=== PATIENT | female | born 1970 | race Caucasian/White ===

== ENCOUNTER 2016-12-10 06:03 | Emergency (ER) | payer SELFPAY ==
--- NOTE | 2016-12-10 07:00 | ED ORDER SUMMARY ---
..... Patient: CORAL WATTERS OrderSheet [facility] VisitID: [id number] [place] [address] 46y, F Registration Date/Time: 12/10/2016 ORDER SHEET Weight: 72.5 kg (stated) Allergies: NKDA GENERAL ORDERS: Rapid Influenza Screen (Nasal Pharyngeal) (swab) Urgent (06:27 12/10/2016 Francisco ZAMORA) (Ack 6:30 IJurca ER Tech1) (6:43 HKone R.N.) Chest 2V Urgent (06:35 12/10/2016 Francisco ZAMORA) (Ack 6:39 IJurca ER Tech1) (6:44 HKone R.N.) RT Evaluation Stat (06:36 12/10/2016 Francisco ZAMORA) (Ack 6:39 IJurca ER Tech1) (6:43 HSoule) MEDICATION ORDERS: Prednisone PO 60 mg (NOW) (06:36 12/10/2016 Francisco ZAMORA) (6:43 HKone R.N.) DuoNeb Neb Tx 1 unit dose (NOW) (06:36 12/10/2016 Francisco ZAMORA) (6:43 HKone R.N.) IV FLUIDS: ORDER SHEET NOTES: [Electronically signed by Selena Zacarias R.N. (07:11 12/10/2016)] [Electronically signed by Ann Carrillo MD (21:05 12/15/2016)] [Electronically locked/signed by Selena Zacarias R.N. (07:11 12/10/2016)]
--- NOTE | 2016-12-10 07:00 | ED CLINICAL REPORT ---
Clinical Report - Physicians/Mid Levels [facility] [address] [place] [address] 12/10/2016 6:04 Patient: CORAL WATTERS Time Seen: 06:15. Arrived- By private vehicle. Historian- patient. HISTORY OF PRESENT ILLNESS Chief Complaint: COUGH, SORE THROAT and "FLU". RUNNY NOSE. This started about 1 week ago and is still present and now worse. The illness is described as moderate. The patient has had a cough, a sore throat, nasal congestion, sinus pressure and muscle aches. She has had a nasal discharge. No sputum production, difficulty breathing, chest discomfort or pain or fever. No chills, hoarseness, sinus drainage or ear pain. Additional history - No known contact with a sick individual. Similar symptoms previously: Recent medical care: Not recently seen/assessed. REVIEW OF SYSTEMS No headache, eye discomfort, nausea, vomiting or diarrhea. No abdominal pain, hay fever, pedal edema, calf pain or difficulty with urination. No skin rash, enlarged lymph nodes or joint pain. Denies current . All systems otherwise negative, except as recorded above. PAST HISTORY Problems: no known problems. Additional Surgeries: Hysterectomy. Right hand surgery. Medications: None. Allergies: NKDA. SOCIAL HISTORY Smoker- current status unknown. No alcohol use or drug use. ADDITIONAL NOTES The nursing notes have been reviewed. PHYSICAL EXAM Vital Signs: 12/10/2016 06:17 BP: 151/73. HR: 97. RR: 20. O2 saturation: 96%. Temp: 98.8 F. Pain level now: 4/10. Have been reviewed. Appearance: Alert. No acute distress. Eyes: Pupils equal, round and reactive to light. Eyes normal inspection. ENT: Pharynx normal. Uvula midline. (Mild rhinorrhea.). Neck: Normal inspection. Neck supple. CVS: Normal heart rate and rhythm. Heart sounds normal. Pulses normal. Respiratory: No respiratory distress. Mildly prolonged expirations. Expiratory mild bilateral wheezes diffusely. No decreased breath sounds. Abdomen: Soft and nontender. Back: Normal inspection. No CVA tenderness. Skin: Skin warm and dry. Normal skin color. No rash. Normal skin turgor. Extremities: Extremities exhibit normal ROM. No lower extremity edema. Neuro: Oriented X 3. No motor deficit. No sensory deficit. LABS, X-RAYS, AND EKG Chest X-ray: No acute disease. Normal lung markings present. Normal heart size. Mediastinum normal. Great vessels normal. Soft tissues normal. No infiltrate. No fracture. No bony lesion present. Views: PA and lateral. Technique: good. The X-rays were independently viewed by me and interpreted contemporaneously by me. Prior films were not available for comparison. Laboratory Tests: Rapid Influenza Screen: (ISAAC: 12/10/2016 06:33) ( MsgRcvd 12/10/2016 06:48) Final results SPECIMEN DESCRIPTION: SWAB Test Result Flag Units (Reference) RAPID INFLUENZA SCREEN DATE: 12/10/16 INFLUENZA A: NEGATIVE SCREEN FOR INFLUENZA A INFLUENZA B: NEGATIVE SCREEN FOR INFLUENZA B . Pulse Oximetry: 12/10/2016 06:17 O2 saturation: 96%. (FIO2 - room air). Interpretation: normal. PROGRESS AND PROCEDURES Course of Care: PT was worked up for her sx with an influenza test and CXR, which were negative. She was treated with a duoneb and prednisone, after which her respiratory status was improved. Patient counseled in person regarding the patient's stable condition, test results, diagnosis and need for follow-up. Concerns were addressed. Old medical records reviewed. Disposition: Discharged. Condition: stable and improved. CLINICAL IMPRESSION Mild persistent asthma with an acute exacerbation. Acute viral (presumed) rhinitis. No airway obstruction. INSTRUCTIONS Do not work today. Drink plenty of fluids. Warnings: GENERAL WARNINGS: Return or contact your physician immediately if your condition worsens or changes unexpectedly, if not improving as expected, or if other problems arise. Prescription Medications: Prednisone 20 mg: take 3 orally every day for 5 days. Dispense fifteen (15). No refills. Zithromax Z-Jewel: Take according to package instructions 2 orally initially, followed by 1 orally for the next 4 days. Total course 5 days. No refills. Substitution is permissible. Advair Diskus 100/50 mcg: one inhalation every 12 hours as needed for wheezing, difficulty breathing or shortness of breath until symptoms improve. Dispense one (1) unit with 60 blisters. No refill. Substitution is permissible. Follow-up: Follow up with your doctor as needed. Call for the next available appointment. Understanding of the discharge instructions verbalized by patient. (Electronically signed by Ann Carrillo MD 12/15/2016 21:05)
--- NOTE | 2016-12-10 07:00 | ED ORDER SUMMARY ---
..... Patient: CORAL WATTERS OrderSheet [facility] VisitID: [id number] [place] [address] 46y, F Registration Date/Time: 12/10/2016 ORDER SHEET Weight: 72.5 kg (stated) Allergies: NKDA GENERAL ORDERS: Rapid Influenza Screen (Nasal Pharyngeal) (swab) Urgent (06:27 12/10/2016 Francisco ZAMORA) (Ack 6:30 IJurca ER Tech1) (6:43 HKone R.N.) Chest 2V Urgent (06:35 12/10/2016 Francisco ZAMORA) (Ack 6:39 IJurca ER Tech1) (6:44 HKone R.N.) RT Evaluation Stat (06:36 12/10/2016 Francisco ZAMORA) (Ack 6:39 IJurca ER Tech1) (6:43 HSoule) MEDICATION ORDERS: Prednisone PO 60 mg (NOW) (06:36 12/10/2016 Francisco ZAMORA) (6:43 HKone R.N.) DuoNeb Neb Tx 1 unit dose (NOW) (06:36 12/10/2016 Francisco ZAMORA) (6:43 HKone R.N.) IV FLUIDS: ORDER SHEET NOTES: [Electronically signed by Selena Zacarias R.N. (07:11 12/10/2016)] [Electronically signed by Ann Carrillo MD (21:05 12/15/2016)] [Electronically locked/signed by Selena Zacarias R.N. (07:11 12/10/2016)]
--- NOTE | 2016-12-10 07:00 | ED NURSING NOTES ---
Clinical Report - Nurses [facility] [address] [place] [address] 12/10/2016 6:04 Patient: CORAL WATTERS TRIAGE Triage time 0617. Acuity: LEVEL 4. Chief Complaint: COUGH, RUNNY NOSE, SORE THROAT and "FLU". KYLEE COMA SCORE: Kylee Coma Scale: 15- eyes open spontaneously (4); best verbal response- oriented x 4 (5); best motor response- obeys commands (6). --06:23 Selena Zacarias R.N. 06:17 12/10/16. BP: 151/73. HR: 97. RR: 20 (regular). O2 saturation: 96% on room air. Temp: 98.8 F (oral). Pain level now: 02/15. --06:23 Selena Zacarias R.N. Weight: 72.5 kg stated. Height/Length: 66 inches Per Patient. BMI: 25.8. --06:17 Selena Zacarias R.N. Medications None. --06:22 Selena Zacarias R.N. Allergies NKDA. --06:22 Selena Zacarias R.N. Medication/allergy information source: the patient. --06:23 Selena Zacarias R.N. History Arrived by private vehicle. Historian: patient. Unaccompanied. Primary physician (Dr. Abiola Jarrell). ( pt c/o flu symptoms with head cold and sinuses x 1 week and worse the past 3 days with productive cough and sore throat last night.). Onset. (1 week). 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 (Mucinex, Theraflu, Nyquil). SOCIAL HX: Light tobacco smoker (cigarette)- less than 1/2 a pack per day. No alcohol use or drug use. ABUSE ASSESSMENT: No report of abuse. FALL RISK ASSESSMENT: Fall risk assessment completed. No fall risk identified. NUTRITIONAL RISK ASSESSMENT: The nutritional risk assessment revealed no deficiencies. FUNCTIONAL ASSESSMENT: Functional assessment: no impairments noted. LEARNING NEEDS ASSESSMENT: The learning needs assessment revealed no barriers. SKIN INTEGRITY ASSESSMENT: Skin integrity risk assessment completed. No skin integrity risk identified. --06:23 Selena Zacarias R.N. PROBLEMS: no known problems. ADDITIONAL SURGERIES: Hysterectomy. Right hand surgery. --06:23 Selena Zacarias R.N. Interventions ID band on patient. To treatment room. --06:23 Selena Zacarias R.N. PHYSICAL ASSESSMENT 06:25 pt c/o sore throat. Ambulatory to room. GENERAL / NEURO / PSYCH: Alert. Oriented X 4. Appears in no acute distress. HEENT: Runny nose. Mucous membranes are pink. RESPIRATORY: Respirations not labored. The patient can speak in full sentences. Cough productive of clear sputum. SKIN: Skin is warm and dry. Normal skin turgor. --06:53 Selena Zacarias R.N. NURSING PROGRESS NOTES Patient gowned. Head of bed elevated. Two patient identifiers checked. Call light placed in reach. Side rails up x 1. Bed placed in lowest position. Brakes of bed on. Patient ready for evaluation. --06:23 Selena Zacarias R.N. pt swabbed for flu, sent to lab. --06:38 Selena Zacarias R.N. 06:43 12/10/2016 Prednisone PO Tablets 60 mg given. Allergies verified and confirmed 5 rights. --06:43 Selena Zacarias R.N. 06:43 12/10/2016 Duoneb (Ipratropium-Albuterol) Neb TX 1 unit dose given. Given by the respiratory therapist. Allergies verified and confirmed 5 rights. --06:43 Selena Zacarias R.N. DISPOSITION / DISCHARGE Departure time: 706. Condition at departure: improved. No learning barriers present. Discharge instructions provided and reviewed with the patient. Reviewed medication(s). Prescription(s) given to the patient (Prednisone, Zpak, Advair). Patient verbalized understanding. Written instructions provided in Vincentian. The patient was discharged by the physician. She was discharged home and unaccompanied at time of discharge. She left the Emergency Department ambulatory and via private vehicle. Patient driving. Medication list reviewed and validated with the patient. --07:11 Selena Zacarias R.N. 07:07 12/10/16. BP: 122/67. HR: 100. RR: 20 (unlabored). O2 saturation: 95% on room air. Temp: deferred. Pain level now: 010. --07:11 Selena Zacarias R.N. Locked/Released at 12/10/2016 7:11 by Selena Zacarias R.N.
--- NOTE | 2016-12-10 07:00 | ED NURSING NOTES ---
Clinical Report - Nurses [facility] [address] [place] [address] 12/10/2016 6:04 Patient: CORAL WATTERS TRIAGE Triage time 0617. Acuity: LEVEL 4. Chief Complaint: COUGH, RUNNY NOSE, SORE THROAT and "FLU". KYLEE COMA SCORE: Kylee Coma Scale: 15- eyes open spontaneously (4); best verbal response- oriented x 4 (5); best motor response- obeys commands (6). --06:23 Selena Zacarias R.N. 06:17 12/10/16. BP: 151/73. HR: 97. RR: 20 (regular). O2 saturation: 96% on room air. Temp: 98.8 F (oral). Pain level now: 02/15. --06:23 Selena Zacarias R.N. Weight: 72.5 kg stated. Height/Length: 66 inches Per Patient. BMI: 25.8. --06:17 Selena Zacarias R.N. Medications None. --06:22 Selena Zacarias R.N. Allergies NKDA. --06:22 Selena Zacarias R.N. Medication/allergy information source: the patient. --06:23 Selena Zcaarias R.N. History Arrived by private vehicle. Historian: patient. Unaccompanied. Primary physician (Dr. Abiola Jarrell). ( pt c/o flu symptoms with head cold and sinuses x 1 week and worse the past 3 days with productive cough and sore throat last night.). Onset. (1 week). 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 (Mucinex, Theraflu, Nyquil). SOCIAL HX: Light tobacco smoker (cigarette)- less than 1/2 a pack per day. No alcohol use or drug use. ABUSE ASSESSMENT: No report of abuse. FALL RISK ASSESSMENT: Fall risk assessment completed. No fall risk identified. NUTRITIONAL RISK ASSESSMENT: The nutritional risk assessment revealed no deficiencies. FUNCTIONAL ASSESSMENT: Functional assessment: no impairments noted. LEARNING NEEDS ASSESSMENT: The learning needs assessment revealed no barriers. SKIN INTEGRITY ASSESSMENT: Skin integrity risk assessment completed. No skin integrity risk identified. --06:23 Selena Zacarias R.N. PROBLEMS: no known problems. ADDITIONAL SURGERIES: Hysterectomy. Right hand surgery. --06:23 Selena Zacarias R.N. Interventions ID band on patient. To treatment room. --06:23 Selena Zacarias R.N. PHYSICAL ASSESSMENT 06:25 pt c/o sore throat. Ambulatory to room. GENERAL / NEURO / PSYCH: Alert. Oriented X 4. Appears in no acute distress. HEENT: Runny nose. Mucous membranes are pink. RESPIRATORY: Respirations not labored. The patient can speak in full sentences. Cough productive of clear sputum. SKIN: Skin is warm and dry. Normal skin turgor. --06:53 Selena Zacarias R.N. NURSING PROGRESS NOTES Patient gowned. Head of bed elevated. Two patient identifiers checked. Call light placed in reach. Side rails up x 1. Bed placed in lowest position. Brakes of bed on. Patient ready for evaluation. --06:23 Selena Zacarias R.N. pt swabbed for flu, sent to lab. --06:38 Selena Zacarias R.N. 06:43 12/10/2016 Prednisone PO Tablets 60 mg given. Allergies verified and confirmed 5 rights. --06:43 Selena Zacarias R.N. 06:43 12/10/2016 Duoneb (Ipratropium-Albuterol) Neb TX 1 unit dose given. Given by the respiratory therapist. Allergies verified and confirmed 5 rights. --06:43 Selena Zacarias R.N. DISPOSITION / DISCHARGE Departure time: 706. Condition at departure: improved. No learning barriers present. Discharge instructions provided and reviewed with the patient. Reviewed medication(s). Prescription(s) given to the patient (Prednisone, Zpak, Advair). Patient verbalized understanding. Written instructions provided in Belgian. The patient was discharged by the physician. She was discharged home and unaccompanied at time of discharge. She left the Emergency Department ambulatory and via private vehicle. Patient driving. Medication list reviewed and validated with the patient. --07:11 Selena Zacarias R.N. 07:07 12/10/16. BP: 122/67. HR: 100. RR: 20 (unlabored). O2 saturation: 95% on room air. Temp: deferred. Pain level now: 010. --07:11 Selena Zacarias R.N. Locked/Released at 12/10/2016 7:11 by Selena Zacarias R.N.
--- NOTE | 2016-12-10 07:19 | DIAGNOSTIC IMAGING REPORT ---
PROCEDURE: XR CHEST 2 VIEW INDICATION: FEVER TECHNIQUE: PA and lateral views. COMPARISON: None. FINDINGS: Lungs are clear. Heart and mediastinum are normal. Thorax is normal. IMPRESSION: 1. Negative chest.
--- NOTE | 2016-12-15 21:05 | ED DISCHARGE INSTRUCTIONS ---
Patient: CORAL WATTERS General Instructions [facility] VisitID: [id number] [place] [address] 46y, F Registration Date/Time: 12/10/2016 Mild persistent asthma with an acute exacerbation. Acute viral (presumed) rhinitis. No airway obstruction. INSTRUCTIONS Do not work today. Drink plenty of fluids. Warnings: GENERAL WARNINGS: Return or contact your physician immediately if your condition worsens or changes unexpectedly, if not improving as expected, or if other problems arise. Prescription Medications: Prednisone 20 mg: take 3 orally every day for 5 days. Dispense fifteen (15). No refills. Zithromax Z-Jewel: Take according to package instructions 2 orally initially, followed by 1 orally for the next 4 days. Total course 5 days. No refills. Substitution is permissible. Advair Diskus 100/50 mcg: one inhalation every 12 hours as needed for wheezing, difficulty breathing or shortness of breath until symptoms improve. Dispense one (1) unit with 60 blisters. No refill. Substitution is permissible. Follow-up: Follow up with your doctor as needed. Call for the next available appointment. Understanding of the discharge instructions verbalized by patient. ADDITIONAL INFORMATION Viral Respiratory Illness [Adult] You have an Upper Respiratory Illness (URI) caused by a virus. This illness is contagious during the first few days. It is spread through the air by coughing and sneezing or by direct contact (touching the sick person and then touching your own eyes, nose or mouth). Most viral illnesses go away within 7-10 days with rest and simple home remedies. Sometimes, the illness may last for several weeks. Antibiotics will not kill a virus and are generally not prescribed for this condition. Home Care: 1) If symptoms are severe, rest at home for the first 2-3 days. When you resume activity, don't let yourself get too tired. 2) Avoid being exposed to cigarette smoke (yours or others). 3) Tylenol (acetaminophen) or ibuprofen (Advil, Motrin) will help fever, muscle aching and headache. (Persons under 18 with fever should not take aspirin since this may cause liver damage.) 4) Your appetite may be poor, so a light diet is fine. Avoid dehydration by drinking 6-8 glasses of fluids per day (water, soft drinks, juices, tea, soup). Extra fluids will help loosen secretions in the nose and lungs. 5) Hcdj-pwi-istfwwj cold medicines will not shorten the length of time youre sick, but they may be helpful for the following symptoms: cough (Robitussin DM); sore throat (Chloraseptic lozenges or spray); nasal and sinus congestion (Actifed, Sudafed, Chlortrimeton). Follow Up with your doctor or as advised if you dont improve over the next week. Get Prompt Medical Attention if any of the following occur: -- Cough with lots of colored sputum (mucus) or blood in your sputum -- Chest pain, shortness of breath, wheezing or have trouble breathing -- Severe headache; face, neck or ear pain -- Fever over 100.4 F (38.0 C) for more than three days -- You cant swallow due to throat pain Asthma [Adult] Asthma is a disease where the small air passages within the lung go into spasm and restrict the flow of air. Inflammation and swelling of the airways cause further restriction. During an acute asthma attack, these factors cause difficulty breathing, wheezing, cough and chest tightness. An asthma attack can be triggered by many things. Common triggers include the common cold, bronchitis, pneumonia, irritants such as smoke or pullutants in the air, emotional upset and heavy exercise. Inmany adults with asthma, allergies todust, mold, pollen and animal dander can cause an asthma attack. Skipping doses of daily asthma medicine can also bring on an asthma attack. Asthma can be controlled with proper medicines and decreased exposure to known allergens. Home Care: Take prescribed medicine exactly at the times advised. If you have a hand-held inhaler or aerosol breathing medicine, do not use it more than once every four hours, unless told to do so. (If you need this medicine more than every four hours, you may need to return to the Emergency Room.) If prescribed an antibiotic or prednisone, take all of the medicine even if you are feeling better after a few days. Do not smoke. Avoid being exposed to the smoke of others. Some persons with asthma have worsening of their symptoms when they take aspirin and non-steroidal medicines like ibuprofen (Motrin, Advil) and naproxen (Aleve, Naprosyn). Talk to your doctor if you think this may apply to you. Acetaminophen (Tylenol)should be safe to use. Follow Up with your doctor, or as advised by our staff. Always bring all of your current medicines with you for your doctor to see. If you do not already have one, talk to your doctor about developing a personalized "Asthma Action Plan." [NOTE: A pneumococcal vaccine and yearly flu shot (every fall) are recommended. Ask your doctor about this.] Get Prompt Medical Attention if any of the following occur: Increased wheezing or shortness of breath Need to use your inhalers more often than usual without relief Fever of 100.4F (38C) or higher, or as directed by your healthcare provider Coughing up lots of dark-colored or bloody sputum (mucus) Chest pain with each breath You do not start to improve within 24 hours Call 911 If Any Of The Following Occur : Trouble walking or talking because of shortness of breath If you use a peak flow meter andyou are still in the red zone (less than 50 percent) 15 minutes after using inhaler medication Lips or fingernails turning adams or blue You have been given the following additional information: Uri, Viral, No Abx (Adult) Asthma, Acute (Adult) Do not work today. (Electronically signed by Ann Carrillo MD 12/15/2016 21:05)
--- NOTE | 2016-12-15 21:05 | ED MED RECONCILIATION SUMMARY ---
Patient: CORAL WATTERS Medication Reconciliation Report [facility] VisitID: [id number] [address] [place] [address] 46y, F Registration Date/Time: 12/10/2016 Weight: 72.5 kg Height/Length: 66 in. BMI: 25.8 ALLERGIES: NKDA The patient's Home Medications are listed below: NONE. The source(s) of the original Home Medication information: patient The following Medications were given to the patient in the Emergency Department: Prednisone [PO] PO 60 mg, administered: 12/10/2016 6:43:00 AM Duoneb [Neb Tx] Neb TX 1 unit dose, administered: 12/10/2016 6:43:00 AM The following Medications were prescribed to the patient: Prednisone 20 mg: take 3 orally every day for 5 days. Dispense fifteen (15). No refills. -- Ann Carrillo MD Zithromax Z-Jewel: Take according to package instructions 2 orally initially, followed by 1 orally for the next 4 days. Total course 5 days. No refills. Substitution is permissible. -- Ann Carrillo MD Advair Diskus 100/50 mcg: one inhalation every 12 hours as needed for wheezing, difficulty breathing or shortness of breath until symptoms improve. Dispense one (1) unit with 60 blisters. No refill. Substitution is permissible. -- Ann Carrillo MD
--- NOTE | 2016-12-15 21:05 | ED MAR SUMMARY ---
..... Medication Administration Record [facility] [address] [place] [address] Patient: CORAL WATTERS Visit ID: [id number] 46y, F Weight: 72.5 kg Height/Length: 66 in BMI: 25.8 ALLERGIES: NKDA Given 06:12/10/2016 Selena Zacarias RDomingo Medication Administered: PREDNISONE [PO], Dose: 60 mg Tablets PO. Medication Ordered: Prednisone PO 60 mg (NOW). Given :12/10/2016 Selena Zacarias RCheleN. Medication Administered: DUONEB [NEB TX] (IPRATROPIUM-ALBUTEROL), Dose: 1 unit dose Neb TX. Medication Ordered: DuoNeb Neb Tx 1 unit dose (NOW).
--- NOTE | 2016-12-15 21:05 | ED MAR SUMMARY ---
..... Medication Administration Record [facility] [address] [place] [address] Patient: CORAL WATTERS Visit ID: [id number] 46y, F Weight: 72.5 kg Height/Length: 66 in BMI: 25.8 ALLERGIES: NKDA Given 06:12/10/2016 Selena Zacarias RDomingo Medication Administered: PREDNISONE [PO], Dose: 60 mg Tablets PO. Medication Ordered: Prednisone PO 60 mg (NOW). Given :12/10/2016 Selena Zacarias RCheleN. Medication Administered: DUONEB [NEB TX] (IPRATROPIUM-ALBUTEROL), Dose: 1 unit dose Neb TX. Medication Ordered: DuoNeb Neb Tx 1 unit dose (NOW).
--- NOTE | 2016-12-15 21:05 | ED MED RECONCILIATION SUMMARY ---
Patient: CORAL WATTERS Medication Reconciliation Report [facility] VisitID: [id number] [address] [place] [address] 46y, F Registration Date/Time: 12/10/2016 Weight: 72.5 kg Height/Length: 66 in. BMI: 25.8 ALLERGIES: NKDA The patient's Home Medications are listed below: NONE. The source(s) of the original Home Medication information: patient The following Medications were given to the patient in the Emergency Department: Prednisone [PO] PO 60 mg, administered: 12/10/2016 6:43:00 AM Duoneb [Neb Tx] Neb TX 1 unit dose, administered: 12/10/2016 6:43:00 AM The following Medications were prescribed to the patient: Prednisone 20 mg: take 3 orally every day for 5 days. Dispense fifteen (15). No refills. -- Ann Carrillo MD Zithromax Z-Jewel: Take according to package instructions 2 orally initially, followed by 1 orally for the next 4 days. Total course 5 days. No refills. Substitution is permissible. -- Ann Carrillo MD Advair Diskus 100/50 mcg: one inhalation every 12 hours as needed for wheezing, difficulty breathing or shortness of breath until symptoms improve. Dispense one (1) unit with 60 blisters. No refill. Substitution is permissible. -- Ann Carrillo MD
== END 2016-12-10 07:07 | disposition home or self-care (01) ==
LOC: ED SRH 06:03
DX: J45.31 Mild persistent asthma with (acute) exacerbation (principal); J00 Acute nasopharyngitis [common cold]
CPT/HCPCS: 91400